=== PATIENT | female | born 1985 | race Hispanic/Latino ===

== ENCOUNTER 2022-07-26 06:29 | Inpatient (IN) | payer BC, OTHER ==
[~2022-07-26] VITALS: Ht 157.5 cm; Wt 84.7 kg
[2022-07-26] MEDS ORDERED: 0.9%NACL 1000ML 1,000 ML IV SCH (07:00)
[2022-07-26 07:10] LABS: BASOPHILS % (AUTO) 0.4 % (0.0-5.0); EOSINOPHILS % (AUTO) 0.2 % (0.0-8.0); HEMATOCRIT 45.9 % (36-48); MEAN CORPUSCULAR HEMOGLOBIN 31.2 pg (27.0-33.0); MEAN CORPUSCULAR HGB CONC 34.6 g/dL (32.0-36.0); MEAN CORPUSCULAR VOLUME 90.2 fL (79-99); MONOCYTES % (AUTO) 5.7 % (3.0-13.0); PLATELET COUNT (AUTO) 296 K/uL (130-400); RED BLOOD CELL COUNT(AUTO) 5.09 MIL/uL (4.00-5.50); RED CELL DISTRIBUTION WIDTH 13.4 % (11.0-15.5)
[2022-07-26 07:32] LABS: WHITE BLOOD COUNT (AUTO) 32.1 K/uL (4.8-10.8)
[2022-07-26 07:57] LABS: ALBUMIN 3.3 g/dL (3.5-5.0); POTASSIUM 3.5 mmol/L (3.5-5.1); TOTAL PROTEIN, SERUM 6.9 g/dL (6.0-8.3)
[2022-07-26 08:03] LABS: APPEARANCE,URINE SL CLOUDY (CLEAR); BILIRUBIN,URINE NEGATIVE (NEGATIVE); COLOR,URINE DARK YELLOW (YELLOW); GLUCOSE, URINE (UA) 100 mg/dL (NEGATIVE); KETONES,URINE >=80 mg/dL (NEGATIVE); LEUKOCYTE ESTERASE ,URINE TRACE (NEGATIVE); NITRATE,URINE POSITIVE (NEGATIVE); OCCULT BLOOD,URINE MODERATE (NEGATIVE); PH,URINE 5.5 (5.0-8.0); PROTEIN,URINE 100 mg/dL (NEGATIVE)
[2022-07-26 08:08] LABS: BACTERIA,URINE Few /HPF (None Seen); RBC,URINE >100 /HPF (0-1); SQUAMOUS EPITHELIAL CELL,UR Few /HPF (0-2); WBC,URINE 0-1 /HPF (0-1)
[2022-07-26 08:11] LABS: INR 1.01 (0.85-1.15)
[2022-07-26 08:12] LABS: PARTIAL THROMBOPLASTIN TIME 28.1 SEC (26.3-35.5)
[2022-07-26] MEDS ORDERED: 0.9%NACL 1000ML 1,000 ML IV ONE (08:30)
[2022-07-26] MEDS ORDERED: ZOSYN 3.375GM +NS 50ML IV STA (08:37)
[2022-07-26 08:38] LABS: BAND NEUTROPHILS % (MANUAL) 2 % (0-2); BASOPHILS % (MANUAL) 1 % (0-2); LYMPHOCYTES % (MANUAL) 8 % (22-44); MAN.DIFF COMMENT-IMPRESSION MANUAL DIFFERENTIAL; MONOCYTES % (MANUAL) 4 % (2-9); PLATELET MORPHOLOGY COMMENT ADEQUATE; SEGMENTED NEUTROPHILS % 85 % (40-70)
[2022-07-26] MEDS ORDERED: IOHEXOL 350 MG/ML 100ML INFUS..BTL IV ONE (08:51)
[2022-07-26] MEDS: ZOSYN 3.375GM +NS 50ML IV SCH ×2 (10:51→20:22)
[2022-07-26] MEDS ORDERED: PHARMACY COMMUNICATION MISC SCH (11:00)
[2022-07-26] MEDS ORDERED: ZOLPIDEM TARTRATE 5 MG TAB PO PRN (11:00)
[2022-07-26] MEDS: DEXTROSE 5 %-0.45 % NACL 1,000 ML IV SCH ×2 (11:49→18:02)
[2022-07-26] MEDS: ACETAMINOPHEN 325 MG TAB PO PRN ×2 (14:19→21:11)
[2022-07-26 14:45] VITALS: BP 100/63
[2022-07-26 16:40] VITALS: BP 127/55
[2022-07-26 19:00] VITALS: BP 118/66
[2022-07-27] VITALS: BP 106/58
[2022-07-27] MEDS: DEXTROSE 5 %-0.45 % NACL 1,000 ML IV SCH ×5 (00:53→22:28)
[2022-07-27] MEDS: ZOSYN 3.375GM +NS 50ML IV SCH ×3 (02:57→19:30)
[2022-07-27 04:00] VITALS: BP 107/68
[2022-07-27 06:17] LABS: BASOPHILS % (AUTO) 0.3 % (0.0-5.0); EOSINOPHILS % (AUTO) 1.7 % (0.0-8.0); HEMATOCRIT 36.4 % (36-48); LYMPHOCYTES % (AUTO) 11.9 % (21.0-51.0); MEAN CORPUSCULAR HEMOGLOBIN 30.8 pg (27.0-33.0); MEAN CORPUSCULAR HGB CONC 33.5 g/dL (32.0-36.0); MEAN CORPUSCULAR VOLUME 91.9 fL (79-99); MONOCYTES % (AUTO) 6.1 % (3.0-13.0); NEUTROPHILS % (AUTO) 79.4 % (40.0-77.0); PLATELET COUNT (AUTO) 249 K/uL (130-400); RED BLOOD CELL COUNT(AUTO) 3.96 MIL/uL (4.00-5.50); RED CELL DISTRIBUTION WIDTH 13.4 % (11.0-15.5); WHITE BLOOD COUNT (AUTO) 18.5 K/uL (4.8-10.8)
[2022-07-27 06:41] LABS: ALBUMIN 2.5 g/dL (3.5-5.0); CREATININE 0.9 mg/dL (0.5-1.5); POTASSIUM 3.3 mmol/L (3.5-5.1); TOTAL PROTEIN, SERUM 6.1 g/dL (6.0-8.3)
[2022-07-27 08:00] VITALS: BP 130/73
[2022-07-27] MEDS ORDERED: PEG 3350/NA SULF,BICARB,CL/KCL 4000 ML SOLN PO SCH (08:00)
[2022-07-27] MEDS ORDERED: HYDROMORPHONE 0.5 MG SYG (0.5MG/0.5ML) ONE (10:01)
[2022-07-27] MEDS: HYDROMORPHONE 0.5 MG SYG (0.5MG/0.5ML) IVP PRN ×2 (10:11→20:38)
[2022-07-27] MEDS: CITALOPRAM 20 MG TABLET PO SCH (10:23)
[2022-07-27 12:00] VITALS: BP 128/81
[2022-07-27 16:00] VITALS: BP 111/77
[2022-07-27] MEDS ORDERED: VANCOMYCIN PROTOCOL PER PHARMACY IV SCH (17:00)
[2022-07-27] MEDS ORDERED: VANCOMYCIN 1.25 GM/250 ML BAG 250 ML IV SCH (18:30)
[2022-07-27 20:00] VITALS: BP 120/81
[2022-07-28] VITALS: BP 107/62
[2022-07-28] MEDS: ZOSYN 3.375GM +NS 50ML IV SCH ×3 (03:01→17:58)
[2022-07-28 04:00] VITALS: BP 114/66
[2022-07-28] MEDS ORDERED: 0.9% NACL 250ML 250 ML ONE (06:24)
[2022-07-28] MEDS: VANCOMYCIN 1G/250ML KIT 250 ML IV SCH ×2 (06:30→18:00)
[2022-07-28 07:45] LABS: HEMATOCRIT 35.6 % (36-48); MEAN CORPUSCULAR HEMOGLOBIN 30.5 pg (27.0-33.0); MEAN CORPUSCULAR HGB CONC 33.4 g/dL (32.0-36.0); MEAN CORPUSCULAR VOLUME 91.3 fL (79-99); RED BLOOD CELL COUNT(AUTO) 3.9 MIL/uL (4.00-5.50); RED CELL DISTRIBUTION WIDTH 13.3 % (11.0-15.5); WHITE BLOOD COUNT (AUTO) 9.8 K/uL (4.8-10.8)
[2022-07-28 08:00] VITALS: BP 129/67
[2022-07-28 08:10] LABS: CREATININE 0.7 mg/dL (0.5-1.5)
[2022-07-28] MEDS: CITALOPRAM 20 MG TABLET PO SCH (09:00)
[2022-07-28] MEDS ORDERED: DIPHENHYDRAMINE HCL 25 MG CAPSULE PO PRN (10:00)
[2022-07-28 12:00] VITALS: BP 119/71
[2022-07-28 16:00] VITALS: BP 120/62
[2022-07-28] MEDS: DEXTROSE 5 %-0.45 % NACL 1,000 ML IV SCH (18:01)
[2022-07-28 20:59] VITALS: BP 120/63
[2022-07-29] MEDS ORDERED: DOCUSATE SODIUM 100 MG CAP PO SCH (12:00)
== END 2022-07-28 22:52 | disposition home or self-care (01) | DRG 389 ==
LOC: EDH 06:29 → OBSVTOIN 10:38 → EDHIP 10:38 → 4DH 14:39
PROVIDERS: ADMIT Internal Medicine; ATTEND Internal Medicine
DX: K56.41 Fecal impaction (principal); N39.0 Urinary tract infection, site not specified; Z20.822 Contact with and (suspected) exposure to COVID-19; K52.9 Noninfective gastroenteritis and colitis, unspecified; F41.9 Anxiety disorder, unspecified; F32.A Depression, unspecified; F90.9 Attention-deficit hyperactivity disorder, unspecified type
CPT/HCPCS: 36415; 74177; 80048; 80053; 81001; 81025; 82550; 83605; 83690; 84484; 85025; 85027; 85610; 85730; 87040; 87077; 87088; 87186; 87635; 87804; 93005; 99291; C9803; G0378; J1170; J2543; J3370; J7042; J7050; Q0163; Q9967

== ENCOUNTER → 2022-08-10 | Outpatient (CLI) | payer OTHER | END | disposition home or self-care (01) | LOC: RAH 10:08 | PROVIDERS: ATTEND Internal Medicine | DX: K80.50 Calculus of bile duct without cholangitis or cholecystitis without obstruction (principal); R10.9 Unspecified abdominal pain | CPT/HCPCS: 76700 ==